=== PATIENT | female | born 1945 | race Caucasian/White ===

== ENCOUNTER 2018-02-10 04:54 | Inpatient (IN) ==
[2018-02-04 12:46] LABS: Appearance,Urine HAZY; Bacteria,Urine FEW /hpf (0); Bilirubin,Urine NEG (NEG); Color,Urine YELLOW; Glucose,Urine (UA) NEGATIVE (NEG); Leukocyte Esterase,Urine NEG /uL (NEG); Mucus,Urine MANY /hpf (0); Protein,Urine 30 mg/dL (NEG); Specific Gravity,Urine 1.023 (1.000-1.035); Urine Blood NEG mg/dL (<0.03); Urine Hyaline Cast 6 /lpf (0-2); Urine RBC 1 /hpf (0-1); Urine Squamous Epithelial Cell 2 /hpf (0-4); Urine WBC 1 /hpf (0-4); Urobilinogen,Urine NEG (NEG)
[2018-02-04 14:23] LABS: Basophils # (Auto) 0 K/mcL (0.0-0.3); Basophils % (Auto) 0.5 % (0.0-2.0); Eosinophils # (Auto) 0.2 K/mcL (0.0-0.7); Eosinophils % (Auto) 3.2 % (0.0-7.0); Granulocytes % (Auto) 59.5 % (38.0-78.0); Lymphocytes # (Auto) 2.1 K/mcL (1.5-4.8); Lymphocytes % (Auto) 30.1 % (15.5-49.0); Mean Cell Volume 96.1 fL (80.0-100.0); Mean Corpuscular HGB Conc 33.7 g/dL (31.0-36.0); Mean Corpuscular Hemoglobin 32.4 pg (26.0-34.0); Monocytes # (Auto) 0.5 K/mcL (0.1-0.9); Monocytes % (Auto) 6.7 % (1.0-12.0); Platelet Count 367 K/mcL (140-440); RBC 3.85 M/mcL (4.00-5.20)
[2018-02-04 14:28] LABS: Blood Urea Nitrogen 14 mg/dl (8-23)
[2018-02-04 15:00] LABS: Estimated Average Glucose(eAG) 131 mg/dL; Hemoglobin A1C 6.2 % HGB (4.0-6.0)
[2018-02-10] MEDS ORDERED: oxyCODONE 10 MG TAB.ER.12H PO SCH (06:00)
[2018-02-10] MEDS ORDERED: PREGABALIN 75 MG CAPSULE PO SCH (06:00)
[2018-02-10] MEDS ORDERED: ACETAMINOPHEN 500 MG TABLET PO SCH (06:00)
[2018-02-10] MEDS ORDERED: ceFAZolin 1 GM VIAL IV SCH (06:00)
[2018-02-10] MEDS ORDERED: CELECOXIB 200 MG CAPSULE PO SCH (06:00)
[2018-02-10] MEDS ORDERED: 0.9 % SODIUM CHLORIDE 9 ML, KETOROLAC 30 MG, ROPIVACAINE HCL/PF 49.5 ML, EPINEPHrine 0.... IJ SCH (06:00)
[2018-02-10 06:20] LABS: Appearance,Urine HAZY; Bilirubin,Urine NEG (NEG); Color,Urine AMBER; Glucose,Urine (UA) NEGATIVE (NEG); Ictotest,Urine NEG (NEG); Leukocyte Esterase,Urine 25 /uL (NEG); Protein,Urine 100 mg/dL (NEG); Specific Gravity,Urine 1.031 (1.000-1.035); Urine Blood NEG mg/dL (<0.03)
[2018-02-10 06:21] LABS: Bacteria,Urine 0 /hpf (0); Mucus,Urine MANY /hpf (0); Urine Hyaline Cast 118 /lpf (0-2); Urine RBC 3 /hpf (0-1); Urine Squamous Epithelial Cell 1 /hpf (0-4); Urine WBC 7 /hpf (0-4)
[2018-02-10] MEDS ORDERED: PROPOFOL 200 MG/20 ML VIAL IV ONE (07:40)
[2018-02-10] MEDS ORDERED: DEXAMETHASONE 10 MG/ML VIAL IV ONE (07:40)
[2018-02-10] MEDS ORDERED: TRANEXAMIC ACID 1,000 MG/10 ML VIAL IV ONE ×2 (07:40→09:26)
[2018-02-10] MEDS ORDERED: ROPIVACAINE HCL/PF 20 ML VIAL IJ ONE (07:40)
[2018-02-10] MEDS ORDERED: MIDAZOLAM 5 MG/5 ML VIAL IV ONE (07:40)
[2018-02-10] MEDS ORDERED: LIDOCAINE HCL/PF 100 MG/5 ML SYRINGE IV ONE (07:40)
[2018-02-10] MEDS ORDERED: ONDANSETRON 4 MG/2 ML VIAL IV ONE (07:40)
[2018-02-10] MEDS ORDERED: GLYCOPYRROLATE 0.2 MG/ML VIAL IV ONE (07:40)
[2018-02-10] MEDS ORDERED: PHENYLEPHRINE 10 MG/ML VIAL IV ONE (07:40)
[2018-02-10] MEDS ORDERED: GENTAMICIN SULFATE 800 MG/20 ML VIAL IR ONE (07:59)
[2018-02-10] MEDS ORDERED: MEPERIDINE 25 MG/ML SYRINGE IV PRN (08:38)
[2018-02-10] MEDS ORDERED: LACTATED RINGERS 250 ML IV PRN (08:38)
[2018-02-10] MEDS ORDERED: fentaNYL 100 MCG/2 ML VIAL IV PRN (08:38)
[2018-02-10] MEDS ORDERED: NALOXONE HCL 0.4 MG/ML VIAL IV PRN (08:38)
[2018-02-10] MEDS ORDERED: METHOCARBAMOL 1,000 MG/10 ML VIAL IV PRN (08:38)
[2018-02-10] MEDS ORDERED: IPRATROPIUM/ALBUTEROL 3 ML AMPUL.NEB NEB PRN (08:38)
[2018-02-10] MEDS ORDERED: FLUMAZENIL 0.1 MG/ML ML IV PRN (08:38)
[2018-02-10] MEDS ORDERED: BENZOCAINE/MENTHOL 1 LOZENGE PO PRN ×2 (08:38→09:26)
[2018-02-10] MEDS ORDERED: ACETAMINOPHEN 1,000 MG/100 ML BOTTLE IV ONE (08:38)
[2018-02-10] MEDS ORDERED: ONDANSETRON 4 MG/2 ML VIAL IV PRN ×2 (08:38→09:26)
[2018-02-10] MEDS ORDERED: LACTATED RINGERS 1,000 ML IV SCH (08:45)
--- NOTE | 2018-02-10 09:16 | Brief Operative Note ---
Date of procedure: 02/10/18 Pre-op diagnosis: Left knee djd Post-op diagnosis: same Procedure: Left robotic TKA Grafts/Implants: Yes Anesthesia: GETA Complications: none Complications Description: 02/10/18 09:15 none Surgeon: Dominic Uriostegui Health And Safety Inspector: Ra Goodwin Estimated blood loss (cc): 100 Tourniquet Time (Minutes): 55 Specimens Removed/Pathology: none sent Condition: stable Disposition: PACU
[2018-02-10] MEDS ORDERED: HYDROmorphone 2 MG/ML VIAL IV PRN (09:26)
[2018-02-10] MEDS ORDERED: FLEETS ADULT ENEMA PR PRN (09:26)
[2018-02-10] MEDS ORDERED: MAGNESIUM HYDROXIDE 30 ML ORAL.SUSP PO PRN (09:26)
[2018-02-10] MEDS ORDERED: BISACODYL 10 MG SUPP.RECT PR PRN (09:26)
[2018-02-10] MEDS ORDERED: POLYETHYLENE GLYCOL 3350 17 GM PACKET PO PRN (09:26)
[2018-02-10] MEDS ORDERED: ACETAMINOPHEN 325 MG TABLET PO PRN (09:26)
[2018-02-10] MEDS ORDERED: TEMAZEPAM 15 MG CAPSULE PO PRN (09:26)
[2018-02-10] MEDS ORDERED: PROMETHAZINE 25 MG TABLET PO PRN (09:29)
--- NOTE | 2018-02-10 10:05 | Operative Note ---
DATE OF OPERATION: 02/10/2018 PREOPERATIVE DIAGNOSIS: Left knee degenerative arthritis, severe. POSTOPERATIVE DIAGNOSIS: Left knee degenerative arthritis, severe. PROCEDURE: Left total knee arthroplasty with the Deejay robot. SURGEON: Dominic Uriostegui MD INTERACTIVE WEB DEVELOPER: Ra Goodwin PA-C ANESTHESIA: General LMA anesthesia. COMPLICATIONS: None. DESCRIPTION OF PROCEDURE: The patient was brought to the operating room and put to sleep with general LMA anesthesia. Once asleep, the patient had the left leg sterilely prepped and draped in the usual sterile fashion. Timeout was performed. We confirmed the operative site. Preop antibiotics and tranexamic acid was given. Once done, we then made a midline incision, mid vastus approach performed. We then performed a robotic total knee. This was done with two pins above and below the knee, we registered center hip rotation medial and lateral malleolus and 30 points on the femur and tibia with the intraarticular pins registered. Once done, we brought in the robot, made our cuts on the tibia and the femur after balancing the knee. These cuts were made. The knee aligned well. We went to an 11 mm poly to balance what we had templated for. This perfectly balanced both in extension and flexion. We preserved the posterior crucial ligament and prepared the patella. The patella measured a total thickness of 24 mm. To match the anterior femur cut and the loss of articular cartilage we placed a 10 mm thick by 35 mm oval patella which covered 90% of the patella very well. This tracked perfectly. We irrigated thoroughly. A deep dish poly liner, a size 11 cemented components were placed, excess cement was removed. The patella was resurfaced as noted. We irrigated thoroughly, kept the knee at 45 degrees, removed any excess cement and deflated the tourniquet at about 50 minutes. We controlled any bleeding with the Bovie and then closed the mid vastus approach with #1 Stratafix x2 sutures. We closed the skin with Stratafix and adhesive closure. The patient tolerated this well. There was no complication. RBH:reed Job ID: [id number] Doc ID: [id number] Dominic Uriostegui MD
--- NOTE | 2018-02-10 10:08 | XRay Report ---
CLINICAL INFORMATION: Postsurgical follow-up TECHNIQUE: AP and lateral left knee COMPARISON: None. FINDINGS: Status post left total knee arthroplasty. Femoral and tibial components are in anatomic positions. There is postsurgical intra-articular and soft tissue gas. IMPRESSION: Status post left total knee arthroplasty Interpreted and Authenticated by: Juvencio Ledbetter 02/10/18
[2018-02-10] MEDS: 0.45 % SODIUM CHLORIDE 1,000 ML IV SCH ×2 (11:00→23:08)
[2018-02-10] MEDS: 0.9 % SODIUM CHLORIDE 10 ML SYRINGE IV SCH ×2 (12:43→21:45)
[2018-02-10] MEDS: KETOROLAC 15 MG/ML VIAL IV SCH ×3 (12:43→23:18)
[2018-02-10] MEDS: ceFAZolin 1 GM VIAL IV SCH ×2 (14:09→23:08)
[2018-02-10] MEDS: CARBIDOPA/LEVODOPA 25/100 TABLET PO SCH ×2 (14:09→21:44)
[2018-02-10] MEDS: oxyCODONE/APAP 5/325MG TABLET PO PRN ×3 (14:16→23:06)
[2018-02-10] MEDS ORDERED: SIMVASTATIN 10 MG TABLET PO SCH (21:00)
[2018-02-10] MEDS ORDERED: ZOLPIDEM 5 MG TABLET PO SCH (21:00)
[2018-02-10] MEDS ORDERED: SENNOSIDES 1 TABLET PO SCH (21:00)
[2018-02-10] MEDS ORDERED: amLODIPine 10 MG TABLET PO SCH (21:00)
[2018-02-10] MEDS ORDERED: DULoxetine 30 MG CAPSULE PO SCH (21:00)
[2018-02-10] MEDS: DOCUSATE SODIUM 100 MG CAPSULE PO SCH (21:43)
[2018-02-10] MEDS: ASPIRIN 325 MG ENTERIC COATED TABLET PO SCH (21:44)
[2018-02-11] MEDS: oxyCODONE/APAP 5/325MG TABLET PO PRN ×3 (04:57→12:58)
[2018-02-11] MEDS: KETOROLAC 15 MG/ML VIAL IV SCH ×2 (05:54→11:49)
[2018-02-11] MEDS: 0.9 % SODIUM CHLORIDE 10 ML SYRINGE IV SCH (05:54)
[2018-02-11] MEDS: 0.45 % SODIUM CHLORIDE 1,000 ML IV SCH (05:54)
[2018-02-11] MEDS ORDERED: OMEPRAZOLE 20 MG CAPSULE PO SCH (07:30)
--- NOTE | 2018-02-11 07:36 | Orthopedic Progress Note ---
Subjective Patient information: Note initiated : 02/11/18 at 7:35 am Service Date, if different from initiated Date: [] Patient: Samaria Marcos 72 y/o F admitted on 02/10/18 for Left Total Knee Arthroplasty Deejay. Chief Complaint: [Pt is stable this morning on post operative day 1 without any significant concerns or complaints. Patients vital signs have remained stable. Patients dressing is dry and is grossly intact from a neurovascular and motor standpoint. Patients 10 point ROS is otherwise negative. ] Objective Vital signs: Vital Signs Temp Pulse Resp BP BP Pulse Ox 02/11/18 06:58 98.7 F 76 14 111/63 100 02/11/18 05:00 98 02/11/18 04:00 97.7 F 80 20 119/65 99 02/11/18 00:25 95 02/11/18 00:00 97.9 F 76 20 127/65 95 02/10/18 20:00 97.9 F 73 20 117/65 93 02/10/18 17:00 95 02/10/18 15:05 97.6 F 18 137/61 96 02/10/18 13:26 96 02/10/18 12:09 136/64 99 02/10/18 11:08 135/64 99 02/10/18 10:53 120/59 98 02/10/18 10:45 98 02/10/18 10:39 111/59 94 02/10/18 10:24 118/58 97 02/10/18 10:09 119/61 93 02/10/18 10:03 97.8 F 80 22 117/46 100 02/10/18 09:55 80 20 117/50 94 02/10/18 09:40 79 16 117/48 100 02/10/18 09:25 97.1 F 82 16 138/43 98 Intake and Output 02/10/18 02/11/18 02/11/18 21:59 05:59 13:59 Intake Total 1040 / 1040 1250 / 1250 Output Total 1250 / 1250 1050 / 1050 Balance -210 / -210 200 / 200 Intake: IV 1000 / 1000 Sodium Chloride 0.45% 1,000 ml 1000 / 1000 @ 100 mls/hr IV .Q10H REPLACED BY [facility] Rx#: [id number] Oral 1040 / 1040 250 / 250 Output: Void Amount 1250 / 1250 1050 / 1050 Other: Meal Dinner Percent of Meal Consumed 100% Feeding Ability Independent Urine Appearance Clear Clear Urine Color Pale Light Alda Urine Odor Normal Normal # Voids 1 3 Weight 216 lb 8 oz Intake & Output: Intake & Output 02/10/18 02/11/18 02/11/18 21:59 05:59 13:59 Intake Total 1040 / 1040 1250 / 1250 Output Total 1250 / 1250 1050 / 1050 Balance -210 / -210 200 / 200 Weight 216 lb 8 oz Intake: IV 1000 / 1000 Sodium Chloride 0.45% 1,000 ml 1000 / 1000 @ 100 mls/hr IV .Q10H [facility] Rx#: [id number] Oral 1040 / 1040 250 / 250 Output: Void Amount 1250 / 1250 1050 / 1050 Other: Meal Dinner Percent of Meal Consumed 100% Feeding Ability Independent Urine Appearance Clear Clear Urine Color Pale Light Alda Urine Odor Normal Normal # Voids 1 3 Incision: Yes healing Incision clean and dry: Yes Dressing: Yes clean Weight bearing status: full Neurological exam IM: Yes motor sensory intact, Yes neurovascular intact Extremities exam IM: Yes Foot pink and warm, Yes neurovascular intact - Labs CBC & BMP: 02/11/18 04:36 02/04/18 11:40 Labs: 02/11/18 02/04/18 04:36 11:40 Hgb 12.5 Hct 30.8 L 37.0 Assessment and Plan (1) Hx of total knee arthroplasty The patient has been educated regarding dressing care, Physical Therapy recommendations, home exercises, restrictions, and follow up appointments. The patient has had all necessary DME prescribed. The patient has remained relatively stable during their hospital course. Leave Dermabond patch intact until followup Status: Acute
--- NOTE | 2018-02-11 07:39 | Discharge Summary ---
Ortho Discharge - TKA - Patient Instructions Diet: Regular Diet Activity: activity as tolerated, weight bearing as tolerated Total Knee Protocol: For Total Knee: Start ROM PRISCA with stationary bike or rocking chair. Work on gaining full extension of knee. Posterior dislocation precautions provided. Hip abductor strengthening and gait training instructions provided. Apply Cryocuff as instructed. Dressing Care: May shower in 2 days Patient Education: Total Knee Replacement (DC) Additional Instructions: CPM for home use. - Problem Maintenance (1) Hx of total knee arthroplasty Status: Acute - Follow Up Plan Follow Up Appointments: Ra Goodwin PA-C [Physician Practical Nurse] - 02/25/18 1:40 pm Disposition: Home, Self-Care Prognosis: Good Rehab Potential: Good I certify that the patient requires SNF services: No Overall status at discharge: patient is progressing back to baseline - Orders For Discharge Prescriptions: Aspirin [Ecotrin] 325 mg PO BID #60 tab.ec Docusate Sodium [Colace] 100 mg PO BID #60 cap oxyCODONE/APAP [Percocet 5-325 mg] 1 - 2 tab PO Q4HP PRN #75 tab PRN Reason: Pain Level 3-6
[2018-02-11] MEDS ORDERED: LEVOTHYROXINE 88 MCG TABLET PO SCH (08:00)
[2018-02-11] MEDS ORDERED: metFORMIN 500 MG TAB.XL.24H PO SCH (08:00)
[2018-02-11] MEDS ORDERED: NON FORMULARY MEDICATION 1 DOSE MISCELL (Aspirin [Adult Low Dose Aspirin Ec] 81 MG) PO SCH (09:00)
[2018-02-11] MEDS ORDERED: LOSARTAN 50 MG TABLET PO SCH (09:00)
[2018-02-11] MEDS ORDERED: LIOTHYRONINE 5 MCG TABLET PO SCH (09:00)
[2018-02-11] MEDS ORDERED: VITAMIN D3 1,000 UNIT TABLET PO SCH (09:00)
[2018-02-11] MEDS ORDERED: FISH OIL 1,000 MG CAPSULE PO SCH (09:00)
[2018-02-11] MEDS: ASPIRIN 325 MG ENTERIC COATED TABLET PO SCH (09:02)
[2018-02-11] MEDS: DOCUSATE SODIUM 100 MG CAPSULE PO SCH (09:02)
[2018-02-11] MEDS: CARBIDOPA/LEVODOPA 25/100 TABLET PO SCH (09:02)
== END 2018-02-11 14:56 | disposition home or self-care (01) | DRG 470 ==
LOC: MEDSUR 04:54
PROVIDERS: ADMIT Orthopaedic Surgery; ATTEND Orthopaedic Surgery
CPT/HCPCS: 62322; 97161; C1713; C1776; J0171; J0690; J1100; J1580; J1885; J2001; J2250; J2370; J2405; J2795; J7050; J7120

== ENCOUNTER 2018-04-21 05:20 | Inpatient (IN) ==
[2018-04-15 16:59] LABS: Appearance,Urine CLEAR; Bilirubin,Urine NEG (NEG); Color,Urine STRAW; Glucose,Urine (UA) NEGATIVE (NEG); Leukocyte Esterase,Urine NEG /uL (NEG); Protein,Urine NEG (NEG); Specific Gravity,Urine 1.009 (1.000-1.035); Urine Blood NEG mg/dL (<0.03); Urobilinogen,Urine NEG (NEG)
[2018-04-15 17:16] LABS: Basophils # (Auto) 0 K/mcL (0.0-0.3); Basophils % (Auto) 0.5 % (0.0-2.0); Eosinophils # (Auto) 0.1 K/mcL (0.0-0.7); Eosinophils % (Auto) 1.5 % (0.0-7.0); Granulocytes % (Auto) 65.5 % (38.0-78.0); Lymphocytes # (Auto) 1.5 K/mcL (1.5-4.8); Lymphocytes % (Auto) 24.4 % (15.5-49.0); Mean Corpuscular HGB Conc 32.8 g/dL (31.0-36.0); Monocytes # (Auto) 0.5 K/mcL (0.1-0.9); Monocytes % (Auto) 8.1 % (1.0-12.0); Platelet Count 442 K/mcL (140-440); RBC 3.83 M/mcL (4.00-5.20); Red Cell Distribution Width 15.1 % (11.5-14.5)
[2018-04-15 17:22] LABS: Blood Urea Nitrogen 10 mg/dl (8-23)
[2018-04-15 17:49] LABS: Estimated Average Glucose(eAG) 117 mg/dL; Hemoglobin A1C 5.7 % HGB (4.0-6.0)
[2018-04-21] MEDS ORDERED: CELECOXIB 200 MG CAPSULE PO SCH (07:00)
[2018-04-21] MEDS ORDERED: oxyCODONE 10 MG TAB.ER.12H PO SCH (07:00)
[2018-04-21] MEDS ORDERED: PREGABALIN 75 MG CAPSULE PO SCH (07:00)
[2018-04-21] MEDS ORDERED: ACETAMINOPHEN 500 MG TABLET PO SCH (07:00)
[2018-04-21] MEDS ORDERED: ceFAZolin 1 GM VIAL IV SCH (07:00)
[2018-04-21] MEDS ORDERED: 0.9 % SODIUM CHLORIDE 9 ML, KETOROLAC 30 MG, ROPIVACAINE HCL/PF 49.5 ML, EPINEPHrine 0.... IJ SCH (07:00)
[2018-04-21] MEDS ORDERED: LIDOCAINE HCL/PF 100 MG/5 ML SYRINGE IV ONE (08:50)
[2018-04-21] MEDS ORDERED: PHENYLEPHRINE 10 MG/ML VIAL IV ONE (08:50)
[2018-04-21] MEDS ORDERED: TRANEXAMIC ACID 1,000 MG/10 ML VIAL IV ONE ×2 (08:50→10:35)
[2018-04-21] MEDS ORDERED: DEXAMETHASONE 10 MG/ML VIAL IV ONE (08:50)
[2018-04-21] MEDS ORDERED: MIDAZOLAM 5 MG/5 ML VIAL IV ONE (08:50)
[2018-04-21] MEDS ORDERED: GLYCOPYRROLATE 0.2 MG/ML VIAL IV ONE (08:50)
[2018-04-21] MEDS ORDERED: ONDANSETRON 4 MG/2 ML VIAL IV ONE (08:50)
[2018-04-21] MEDS ORDERED: PROPOFOL 200 MG/20 ML VIAL IV ONE (08:50)
[2018-04-21] MEDS ORDERED: ePHEDrine 50 MG/ML AMPUL IV ONE (08:50)
[2018-04-21] MEDS ORDERED: ROPIVACAINE HCL/PF 20 ML VIAL IJ ONE (09:00)
[2018-04-21] MEDS ORDERED: GENTAMICIN SULFATE 800 MG/20 ML VIAL IR ONE (09:20)
[2018-04-21] MEDS ORDERED: MEPERIDINE 25 MG/ML SYRINGE IV PRN (09:52)
[2018-04-21] MEDS ORDERED: HYDROmorphone 2 MG/ML VIAL IV PRN ×2 (09:52→10:35)
[2018-04-21] MEDS ORDERED: METHOCARBAMOL 1,000 MG/10 ML VIAL IV PRN (09:52)
[2018-04-21] MEDS ORDERED: FLUMAZENIL 0.1 MG/ML ML IV PRN (09:52)
[2018-04-21] MEDS ORDERED: NALOXONE HCL 0.4 MG/ML VIAL IV PRN (09:52)
[2018-04-21] MEDS ORDERED: fentaNYL 100 MCG/2 ML VIAL IV PRN (09:52)
[2018-04-21] MEDS ORDERED: diphenhydrAMINE 50 MG/ML VIAL IV PRN (09:52)
[2018-04-21] MEDS ORDERED: METOPROLOL TARTRATE 5 MG/5 ML VIAL IV PRN (09:52)
[2018-04-21] MEDS ORDERED: ATROPINE SULFATE 0.4 MG/ML VIAL IV PRN (09:52)
[2018-04-21] MEDS ORDERED: PROMETHAZINE 25 MG/ML VIAL IV PRN (09:52)
[2018-04-21] MEDS ORDERED: ePHEDrine 50 MG/ML AMPUL IV PRN (09:52)
[2018-04-21] MEDS ORDERED: ONDANSETRON 4 MG/2 ML VIAL IV PRN ×2 (09:52→10:35)
[2018-04-21] MEDS ORDERED: IPRATROPIUM/ALBUTEROL 3 ML AMPUL.NEB NEB PRN (09:52)
[2018-04-21] MEDS ORDERED: LACTATED RINGERS 1,000 ML IV SCH (10:00)
[2018-04-21] MEDS ORDERED: TEMAZEPAM 15 MG CAPSULE PO PRN (10:35)
[2018-04-21] MEDS ORDERED: POLYETHYLENE GLYCOL 3350 17 GM PACKET PO PRN (10:35)
[2018-04-21] MEDS ORDERED: BENZOCAINE/MENTHOL 1 LOZENGE PO PRN (10:35)
[2018-04-21] MEDS ORDERED: BISACODYL 10 MG SUPP.RECT PR PRN (10:35)
[2018-04-21] MEDS ORDERED: HYDROcodone/APAP 10/325MG TABLET PO PRN (10:35)
[2018-04-21] MEDS ORDERED: FLEETS ADULT ENEMA PR PRN (10:35)
[2018-04-21] MEDS ORDERED: ACETAMINOPHEN 325 MG TABLET PO PRN (10:35)
[2018-04-21] MEDS ORDERED: MAGNESIUM HYDROXIDE 30 ML ORAL.SUSP PO PRN (10:35)
--- NOTE | 2018-04-21 10:35 | Brief Operative Note ---
Date of procedure: 04/21/18 Pre-op diagnosis: Right knee djd Post-op diagnosis: same Procedure: right total kneewith venancio robot Grafts/Implants: Yes Anesthesia: GETA Complications: none Complications Description: 04/21/18 10:34 none Surgeon: Dominic Uriostegui Training Program Manager: Ra Goodwin Estimated blood loss (cc): 20 Tourniquet Time (Minutes): 45 Specimens Removed/Pathology: none sent Condition: stable Disposition: PACU
--- NOTE | 2018-04-21 11:06 | Operative Note ---
DATE OF OPERATION: 04/21/2018 PREOPERATIVE DIAGNOSIS: Right knee degenerative arthritis. POSTOPERATIVE DIAGNOSIS: Right knee degenerative arthritis. PROCEDURE: Right total knee arthroplasty using the Deejay robot. SURGEON: Dominic Uriostegui M.D. BRAND PLANNER: Ra Goodwin PA-C. ANESTHESIA: General LMA anesthesia. TOURNIQUET TIME: 45 minutes. DESCRIPTION OF PROCEDURE: The patient was brought to the operating room and put to sleep with general LMA anesthesia. Once asleep, the patient had the right leg sterilely prepped and draped in the usual sterile fashion. A timeout was performed confirming this as the operative site. A midvastus approach was performed, and we inspected the entire knee which showed severe arthritis throughout With this, we brought in the robot, registered the thirty points on the femur and tibia, registered the center of hip rotation, medial and lateral malleolus and intra-articular pins. Once all registered, the robot was brought in, registered, and then the bony cuts were made. We then removed the spurs as well from the back of the knee, preserving the PCL. We tapped into place the trials with an 11 mm poly. This seemed to match her anatomy and tension of the ligaments was near normal. Once done, we then resurfaced the patella with a 33 mm patellar button oval. We then cemented into place all the components. Excess cement was removed. We deflated the tourniquet at 45 minutes. We controlled any bleeding and thoroughly irrigated the knee. The capsule was injected with the post-inject formula. At this point, we then closed the midvastus approach with #1 Stratafix x2 sutures and closed the skin with a Stratafix and adhesive closure. The patient tolerated this well. All pins were removed and accounted for. RBH:ashley Job ID: [id number] Doc ID: [id number] Dominic Uriostegui MD
[2018-04-21] MEDS: 0.45 % SODIUM CHLORIDE 1,000 ML IV SCH ×2 (11:29→21:36)
--- NOTE | 2018-04-21 11:30 | XRay Report ---
HISTORY: Postop knee replacement FINDINGS: There is a well-positioned right total knee prosthesis. There is no fracture or abnormal soft tissue calcification. IMPRESSION: Well-positioned right knee prosthesis Interpreted and Authenticated by: Lisandro Rodgers 04/21/18
[2018-04-21] MEDS: TRANEXAMIC ACID 1,000 MG/10 ML VIAL IV ONE ×2 (11:33→11:34)
[2018-04-21] MEDS ORDERED: KETOROLAC 15 MG/ML VIAL IV SCH (12:00)
[2018-04-21] MEDS: KETOROLAC 30 MG/ML VIAL IV SCH ×2 (12:27→17:44)
[2018-04-21] MEDS: 0.9 % SODIUM CHLORIDE 10 ML SYRINGE IV SCH ×2 (13:52→21:37)
[2018-04-21] MEDS: ceFAZolin 1 GM VIAL IV SCH (15:44)
[2018-04-21] MEDS: oxyCODONE/APAP 5/325MG TABLET PO PRN ×2 (15:45→19:49)
[2018-04-21] MEDS ORDERED: SENNOSIDES 1 TABLET PO SCH (21:00)
[2018-04-21] MEDS: ASPIRIN 325 MG ENTERIC COATED TABLET PO SCH (21:37)
[2018-04-21] MEDS: DOCUSATE SODIUM 100 MG CAPSULE PO SCH (21:37)
[2018-04-21] MEDS: oxyCODONE 10 MG TAB.ER.12H PO SCH (21:37)
[2018-04-22] MEDS: ceFAZolin 1 GM VIAL IV SCH (00:37)
[2018-04-22] MEDS: oxyCODONE/APAP 5/325MG TABLET PO PRN ×3 (00:38→10:06)
[2018-04-22] MEDS: KETOROLAC 30 MG/ML VIAL IV SCH ×3 (00:38→11:45)
[2018-04-22] MEDS: 0.9 % SODIUM CHLORIDE 10 ML SYRINGE IV SCH (05:35)
--- NOTE | 2018-04-22 07:50 | Orthopedic Progress Note ---
Subjective Patient information: Note initiated : 04/22/18 at 7:49 am Service Date, if different from initiated Date: [] Patient: Samaria Marcos 73 y/o F admitted on 04/21/18 for Right Robotic Total Knee Arthroplasty. Chief Complaint: [Pt is stable this morning on post operative day 1 without any significant concerns or complaints. Patients vital signs have remained stable. Patients dressing is dry and is grossly intact from a neurovas cular and motor standpoint. Patients 10 point ROS is otherwise negative. ] Objective Vital signs: Vital Signs Temp Pulse Resp BP Pulse Ox 04/22/18 03:19 97.5 F 68 20 147/63 98 04/22/18 02:00 98 04/22/18 00:30 97.5 F 66 20 159/77 98 04/21/18 23:00 66 04/21/18 19:16 98.2 F 74 20 128/60 96 04/21/18 16:00 97.4 F 18 126/60 98 04/21/18 12:25 78 149/64 100 04/21/18 12:10 73 142/63 100 04/21/18 11:55 78 139/66 99 04/21/18 11:40 83 151/64 96 04/21/18 11:25 97.5 F 78 146/69 100 04/21/18 11:16 97.3 F 79 16 159/64 99 04/21/18 11:09 97.5 F 78 16 145/73 100 04/21/18 10:55 97.5 F 78 16 138/100 99 04/21/18 10:51 77 16 131/53 98 04/21/18 10:46 78 16 129/69 100 04/21/18 10:41 97.6 F 79 16 151/60 100 Intake and Output 04/21/18 04/22/18 04/22/18 21:59 05:59 13:59 Intake Total 1500 150 Output Total 450 Balance 1050 150 Intake: Oral 1500 150 Output: Void Amount 450 Other: # Voids 1 1 Weight 209 lb Intake & Output: Intake & Output 04/21/18 04/22/18 04/22/18 21:59 05:59 13:59 Intake Total 1500 150 Output Total 450 Balance 1050 150 Weight 209 lb Intake: Oral 1500 150 Output: Void Amount 450 Other: # Voids 1 1 Incision: Yes healing Incision clean and dry: Yes Weight bearing status: full Neurological exam IM: Yes motor sensory intact, Yes neurovascular intact Extremities exam IM: Yes Foot pink and warm, Yes neurovascular intact - Labs CBC & BMP: 04/22/18 04:55 04/15/18 15:28 Labs: Orthopedic Labs 04/15/18 15:28 PT 13.3 INR 1.0 04/22/18 04/15/18 04:55 15:28 Hgb 12.2 Hct 29.8 L 37.1 Assessment and Plan (1) Hx of total knee arthroplasty The patient has been educated regarding dressing care, Physical Therapy recommendations, home exercises, restrictions, and follow up appointments. The patient has had all necessary DME prescribed. The patient has remained relatively stable during their hospital course. Leave Dermabond patch intact until followup Status: Acute
--- NOTE | 2018-04-22 07:52 | Discharge Summary ---
Ortho Discharge - TKA - Patient Instructions Diet: Regular Diet Activity: activity as tolerated, weight bearing as tolerated Total Knee Protocol: For Total Knee: Start ROM PRISCA with stationary bike or rocking chair. Work on gaining full extension of knee. Posterior dislocation precautions provided. Hip abductor strengthening and gait training instructions provided. Apply Cryocuff as instructed. Dressing Care: May shower in 2 days - Problem Maintenance (1) Hx of total knee arthroplasty Status: Acute - Follow Up Plan Follow Up Appointments: Ra Goodwin PA-C [Physician Rope Rider] - 05/06/18 1:10 pm Disposition: Home, Self-Care Prognosis: Good Rehab Potential: Good Overall status at discharge: patient is progressing back to baseline - Orders For Discharge Prescriptions: Aspirin [Ecotrin] 325 mg PO BID #60 tab.ec Docusate Sodium [Colace] 100 mg PO BID #60 capsule oxyCODONE/APAP [Percocet 5-325 mg] 1 - 2 tab PO Q4HP PRN #75 tab PRN Reason: Pain Level 3-6
[2018-04-22] MEDS: oxyCODONE 10 MG TAB.ER.12H PO SCH (08:25)
[2018-04-22] MEDS: DOCUSATE SODIUM 100 MG CAPSULE PO SCH (08:26)
[2018-04-22] MEDS: ASPIRIN 325 MG ENTERIC COATED TABLET PO SCH (08:26)
[2018-04-22] MEDS: 0.45 % SODIUM CHLORIDE 1,000 ML IV SCH (09:27)
== END 2018-04-22 12:44 | disposition home or self-care (01) | DRG 470 ==
LOC: MEDSUR 05:20
PROVIDERS: ADMIT Orthopaedic Surgery; ATTEND Orthopaedic Surgery